=== PATIENT | male | born 1980 | race African-American/Black ===

== ENCOUNTER 2020-04-28 14:02 | Emergency (ER) | payer OTHER ==
[~2020-04-28 14:02] MED LIST: Heparin 1,000 UNITS/ML VIAL ONE
--- NOTE | 2020-04-28 16:53 | SPC ---
SPC CVP LINE PICC INITIAL >5: 04/28/2020 4:49 PM INDICATION: Osteomyelitis; need for long-term IV antibiotics PROCEDURE: Peripherally placed 49 cm left brachial PICC line. PICC Line Placement: The left arm was prepped and draped in sterile fashion. One percent lidocaine was used for local anesthetic. Under fluoroscopic and ultrasound guidance, the left brachial vein was patent and accessed with a baldo ropuncture needle. A guide wire was then advanced into the left brachial vein. A vascular sheath was then advanced over a guide wire, and a single lumen PICC line was trimmed. The PICC line was then advanced into the central venous system. A final placement film demonstrates the tip of the catheter terminated in the caval-atrial junction. After confirmation of the catheter position, the catheter was sutured in place at the skin entry site . There was no immediate complication. Total fluoroscopic time 0.4 minutes. Total exposure 8428 mgray/sq cm IMPRESSION: Peripheral placement of a single lumen power PICC line into the left brachial vein using fluoroscopic and ultrasound guidance.
== END 2020-04-28 17:05 ==
LOC: EEVIPCON 14:02 → ERS 14:02
DX: Z45.2 Encounter for adjustment and management of vascular access device (principal); I10 Essential (primary) hypertension; Z86.718 Personal history of other venous thrombosis and embolism; Z79.899 Other long term (current) drug therapy; Z79.01 Long term (current) use of anticoagulants
CPT/HCPCS: 36569; 99283; C1751; J1644

== ENCOUNTER → 2023-10-19 | Day surgery (SDC) | payer OTHER ==
[~2023-10-19] MED LIST changes: -Heparin 1,000 UNITS/ML VIAL ONE; +Lidocaine 1% PF 5 ML VIAL ONE; +Sodium Bicarbonate 2.5 MEQ/5 ML SDV ONE
== END ==
LOC: EEVIPCON 09:23 → SPEC 09:23
PROVIDERS: ATTEND Nurse Practitioner Family
PROC: 05HY33Z Insertion of Infusion Device into Upper Vein, Percutaneous Approach (ICD-10-PCS; principal; 2023-10-19)
DX: Z45.2 Encounter for adjustment and management of vascular access device (principal); L08.9 Local infection of the skin and subcutaneous tissue, unspecified
CPT/HCPCS: 36569; 76937; 77001